=== PATIENT | female | born 1995 | race Caucasian/White ===

== ENCOUNTER 2021-06-30 08:54 | Outpatient (CLI) | payer OTHER | END 2021-06-30 08:55 | disposition home or self-care (01) | LOC: CSHCT 08:54 | PROVIDERS: ATTEND Family Medicine | DX: I82.403 Acute embolism and thrombosis of unspecified deep veins of lower extremity, bilateral (principal) | CPT/HCPCS: 93970 ==

== ENCOUNTER 2021-07-05 09:52 | Outpatient (CLI) | payer OTHER | END 2021-07-05 09:53 | disposition home or self-care (01) | LOC: CSHCT 09:52 | PROVIDERS: ATTEND Family Medicine | DX: I26.92 Saddle embolus of pulmonary artery without acute cor pulmonale (principal) | CPT/HCPCS: 71275 ==